=== PATIENT | male | born 1980 | race Caucasian/White ===

== ENCOUNTER → 2023-08-08 13:33 | Outpatient (REF) | payer BC, SELFPAY | LOC: RAD 13:33 | PROVIDERS: ATTENDING PHYSICIAN Family Medicine; FAMILY PHYSICIAN Family Medicine | DX: M54.50 Low back pain, unspecified (principal) | CPT/HCPCS: 72110 ==

== ENCOUNTER 2023-08-09 09:56 | Emergency (ER) | payer BC, SELFPAY ==
[2023-08-09 09:58] VITALS: BP 166/100
--- NOTE | 2023-08-09 11:29 | ED.GENMED ---
History of Present Illness
General
Chief Complaint: Back Pain
Source: patient
Exam Limitations: none
Time Seen by Provider: 08/09/23 11:08
Travel History
Have you had any contact with someone who has COVID-19?: No
Do you have any symptoms of coronavirus? Fever > 100 degrees, chills, cough, shortness of breath, sore throat, loss of taste or smell, muscle aches, or headache?: No
History of Present Illness
History of Present Illness:
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 This is been progressively getting worse over the past 9 or 10 days. This started a cough where he
felt a little pull in the back but he was able to continue doing what he was doing. Several days later [place] and felt more discomfort. The day after that he pain. He has since been at the urgent care and received trigger point
injection and saw his family doctor yesterday and obtained x-rays. He was also started on Neurontin and Flexeril. He took his first doses of these last night. He states even the skin is very sensitive to touch. He denies a rash. He denies fever
but he does note chills and sweats. No recent dental work. He denies IV drug abuse. No bowel or bladder dysfunction. The pain does not radiate to his legs otherwise
Phy Exam
Physical Exam
Physical Exam:
General: Well-appearing male no acute respiratory distress HEENT: Normocephalic atraumatic
Skin: No obvious rash or lesion in the area of concern. There is a subtle erythematous patch noted on the lateral hip that seem to resolve during the exam. No vesicles noted. Placement is musculoskeletal exam: Tender over the right
Flank and right lateral hip
Neurologic: Bilateral patellar reflexes 2+: Good sensation light touch bilateral lower extremities.
Course
Orders/Labs/Results
Orders:
Orders
08/09/23 11:19
CRP [C-Reactive Protein] Urgent
Complete Blood Count/With Diff Urgent
Comprehensive Metabolic Panel Urgent
Erythrocyte Sed Rate Urgent
08/09/23 11:22
Dexamethasone Sod Phosphate [Decadron] 10 mg IV NOW STA
Ketorolac [Toradol] 30 mg IV NOW STA
08/09/23 11:34
MR Lumbar W/o & With Contrast Urgent
Comment:
Reason For Exam: lower back and right groin pain
Recent pill cam endoscopy?: No
08/09/23 12:17
HYDROmorphone [Dilaudid] 0.5 mg IV NOW STA
Abnormal Lab Results
08/09/23
11:19
WBC 11.3 H 10^3/uL
(4.8-10.8)
Abs Immat Gran (auto) 0.1 H 10^3/uL
(0-0.05)
Absolute Neuts (auto) 8.5 H 10^3/uL
(1.4-6.5)
Absolute Monos (auto) 0.7 H 10^3/uL
(0.1-0.6)
Lymphocytes % 17.9 L %
(20.5-51.1)
BUN 23 H mg/dl
(9-20)
Glucose 129 H mg/dl
(70-99)
08/09/23 11:19
08/09/23 11:19
Vital Signs
Initial and Last Documented VS:
Initial Vital Signs
Temp Pulse Resp BP Pulse Ox
98.0 F 76 16 166/100 98
08/09/23 09:58 08/09/23 09:58 08/09/23 09:58 08/09/23 09:58 08/09/23 09:58
Last Documented Vital Signs
Temp Pulse Resp BP Pulse Ox
98 F 76 18 156/102 97
08/09/23 13:37 08/09/23 13:37 08/09/23 13:37 08/09/23 13:37 08/09/23 13:37
MDM/Problems Addressed
Differential Diagnosis Includes:
Severe lower right back pain into the right groin with subjective chills and sweats. Consider radiculopathy versus shingles versus abscess versus herniated disc.
Will check labs including inflammatory markers. Discussed with radiology as well as emergency room attending. Will order MRI of lumbar spine with and without contrast to evaluate for the potential of possible epidural abscess
*Critical Care Note
Total Time (30-74mins, 75-104mins- exclusive of procedures): Not Applicable
Update Note
Update Note:
Discussed with radiology. Obtain MRI of the lumbar spine which reveals multiple levels of degenerative changes and small disc bulges no significant central canal narrowing discitis osteomyelitis or abscess.
Patient reevaluated and now feeling improved. He is upright ambulatory. Will continue to take prednisone at home with Neurontin. Did prescribe him a limited supply of pain medication for breakthrough pain. He has appointment this coming Saturday
with [facility] through [facility]
ED Attending Note
-
Portions of this chart may have been created with voice recognition software.� Occasional wrong word or��sound alike� substitutions may have occurred due to the inherent limitations of voice recognition software.
Discharge Plan
Departure
Patient Disposition: Home (Routine Discharge)
Date of Disposition: 08/09/23
Time of Disposition: 14:20
Patient with high blood pressure during this ER visit?: No
Discharge Problem:
Radiculopathy
Instructions: Radiculopathy (DC)
Prescriptions:
New
oxycodone-acetaminophen [Percocet] 5-325 mg tablet
1 tab PO Q8H PRN (Reason: Pain) Qty: 10 0RF
Referrals:
Maurizio Vargas DO [Family Provider] -
Activity Restrictions/Additional Instructions:
Please keep appointment with [facility] as scheduled this coming Saturday. Continue with Neurontin and steroid. Take prescribed pain medicine as needed for severe pain. Return if worse otherwise
Interventions
Interventions:
*ED COVID-19 Vaccine History Last Done: 08/09/23 09:58
ED-Musculoskeletal Assessment Last Done: 08/09/23 11:11
Discharge Date and Time
Print Language: AMERICAN
[2023-08-09] MEDS: DECADRON 10 MG IV (11:37)
[2023-08-09] MEDS: TORADOL 30 MG IV (11:38)
[2023-08-09 11:41] LABS: % Basophils 0.3 % (0-2); % Eosinophils 0.1 % (0-6); % Immature Granulocytes 0.5 % (0-0.5); % Lymphocytes 17.9 % (20.5-51.1); % Monocytes 6.2 % (1.7-9.3); Absolute Immature Granulocytes 0.1 10^3/uL (0-0.05); Absolute Monocytes 0.7 10^3/uL (0.1-0.6); Absolute Neutrophils 8.5 10^3/uL (1.4-6.5); Hematocrit 44.4 % (39.0-52.0); Hemoglobin 14.9 g/dL (13.0-18.0); Mean Corp Hgb Conc. 33.6 g/dL (33.0-37.0); Mean Corpuscular Hgb 30.5 pg (27.0-31.0); Mean Corpuscular Volume 90.8 fL (80.0-94.0); Mean Platelet Volume 9.6 fL (7.4-10.4); Nucleated Red Blood Cells % 0 % (-); Platelet Count 218 10^3/uL (130-400); Red Blood Cell Count 4.89 10^6/uL (4.70-6.10); Red Cell Dist. Width 12.5 % (11.5-14.5); White Blood Cell Count 11.3 10^3/uL (4.8-10.8)
[2023-08-09 11:56] LABS: C-Reactive Protein < 5.00 mg/L (0.0-10.00)
[2023-08-09 11:57] LABS: ALT (SGPT) 19 U/L (0-50); AST (SGOT) 19 U/L (17-59); Albumin 4.5 g/dl (3.5-5.0); Alkaline Phosphatase 57 U/L (38-126); Blood Urea Nitrogen 23 mg/dl (9-20); Calcium 9.7 mg/dl (8.4-10.2); Carbon Dioxide 29 mmol/L (22-30); Chloride 104 mmol/L (98-107); Glucose 129 mg/dl (70-99); Potassium 3.7 mmol/L (3.5-5.1); Sodium 142 mmol/L (135-145); Total Bilirubin 0.7 mg/dl (0.2-1.3); Total Protein 7.3 g/dl (6.3-8.2); eGFR > 60.00
[2023-08-09 12:06] LABS: Erythrocyte Sed Rate 9 mm/hour (0-20)
[2023-08-09] MEDS: DILAUDID 0.5 MG IV (12:20)
[2023-08-09 13:37] VITALS: BP 156/102
[2023-08-09 14:31] VITALS: BP 160/106
== END 2023-08-09 15:06 | disposition home or self-care (01) ==
LOC: EMR 09:56
PROVIDERS: Physician Assistant; EMERGENCY PHYSICIAN Emergency Medicine; FAMILY PHYSICIAN Family Medicine
DX: M54.10 Radiculopathy, site unspecified (principal)
CPT/HCPCS: 99284; 96374; 96375; 72158; 80053; 85025; 85652; 86140; A9575

== ENCOUNTER → 2024-12-30 16:02 | Outpatient (REF) | payer BC, SELFPAY | LOC: RAD 16:02 | PROVIDERS: ATTENDING PHYSICIAN Nurse Practitioner Family; FAMILY PHYSICIAN Family Medicine | DX: M79.662 Pain in left lower leg (principal) | CPT/HCPCS: 93971 ==